=== PATIENT | male | born 1950 | race Asian ===

== ENCOUNTER 2020-01-26 08:04 | Day surgery (SDC) | payer OTHER, SELFPAY ==
[~2020-01-26] VITALS: Ht 160 cm; Wt 59.0 kg
[2020-01-26] MEDS ORDERED: fentaNYL citrate 0.05 MG/ML VIAL ONE (10:42)
[2020-01-26] MEDS ORDERED: LIDOCAINE 2% 100 MG/5 ML UJET TP ONE ×2 (10:43→15:55)
[2020-01-26] MEDS ORDERED: fentaNYL citrate 0.05 MG/ML VIAL IVP ONE (15:45)
[2020-01-26] MEDS ORDERED: LIDOCAINE JELLY 2% 30 ML TUBE TP ONE (15:45)
== END 2020-01-26 11:40 | disposition home or self-care (01) ==
LOC: MDS 08:04 → MMU 08:08 → MDS 11:40
PROVIDERS: ATTEND Internal Medicine Gastroenterology
DX: Z12.11 Encounter for screening for malignant neoplasm of colon (principal); K63.5 Polyp of colon; E78.5 Hyperlipidemia, unspecified; F17.210 Nicotine dependence, cigarettes, uncomplicated
CPT/HCPCS: 45385; J3010; U0003